=== PATIENT | female | born 1965 | race Two or more races ===

== ENCOUNTER 2022-08-28 08:29 | Emergency (ER) | payer OTHER ==
[~2022-08-28] VITALS: Ht 165.1 cm; Wt 84.8 kg
[2022-08-28] MEDS ORDERED: SYNTHROID75 MCG (08:37)
[2022-08-28] MEDS ORDERED: LIPITOR20 MG (08:37)
[2022-08-28] MEDS ORDERED: NEURONTIN800 MG (08:38)
[2022-08-28] MEDS ORDERED: PRILOSEC OTC20 MG (08:38)
[2022-08-28] MEDS ORDERED: ZESTRIL30 MG (08:38)
== END 2022-08-28 10:27 | disposition home or self-care (01) ==
LOC: ER 08:29
DX: M47.27 Other spondylosis with radiculopathy, lumbosacral region (principal); I10 Essential (primary) hypertension; E03.8 Other specified hypothyroidism

== ENCOUNTER 2023-02-25 12:10 | Emergency (ER) | payer OTHER ==
[~2023-02-25] VITALS: Ht 165.1 cm; Wt 90.7 kg
[~2023-02-25 12:10] MED LIST: LIPITOR20 MG; NEURONTIN800 MG; PRILOSEC OTC20 MG; SYNTHROID75 MCG; ZESTRIL30 MG
== END 2023-02-25 15:40 | disposition home or self-care (01) ==
LOC: ER 12:10
DX: S89.82XA Other specified injuries of left lower leg, initial encounter (principal); S89.91XA Unspecified injury of right lower leg, initial encounter; X58.XXXA Exposure to other specified factors, initial encounter; Y93.89 Activity, other specified; Y92.89 Other specified places as the place of occurrence of the external cause; Y99.8 Other external cause status; E03.8 Other specified hypothyroidism; I10 Essential (primary) hypertension

== ENCOUNTER 2023-03-22 16:48 | Emergency (ER) | payer OTHER ==
[~2023-03-22] VITALS: Ht 165.1 cm; Wt 90.7 kg
[2023-03-22] MEDS ORDERED: SINGULAIR10 MG PO (17:23)
[2023-03-22 18:45] LABS: HEMATOCRIT 34.4 % (36.0-45.00); HEMOGLOBIN 11.5 g/dL (12.0-15.00); MEAN CELL VOLUME 87.6 fL (80.00-100.00); MEAN CORPUSCULAR HEMOGLOBIN 29.4 pg (27.00-32.0); MEAN CORPUSCULAR HGB CONC 33.6 g/dl (32.0-36.0); PLATELET COUNT 221 K/uL (150-450); RED BLOOD COUNT 3.92 M/uL (4.00-6.00); RED CELL DISTRIBUTION WIDTH 14.1 % (11.5-14.5)
[2023-03-22] MEDS ORDERED: XOPENEX CO1.25 MG/0. IH (20:36)
[2023-03-22] MEDS ORDERED: MEDROLPACK PO (20:36)
[2023-03-22] MEDS ORDERED: IPRATROPIU0.2 MG/1 M IH (20:36)
== END 2023-03-22 20:47 | disposition home or self-care (01) ==
LOC: ER 16:48
PROVIDERS: Nurse Practitioner Family
DX: J45.909 Unspecified asthma, uncomplicated (principal); I10 Essential (primary) hypertension; G43.909 Migraine, unspecified, not intractable, without status migrainosus; E03.9 Hypothyroidism, unspecified; E78.49 Other hyperlipidemia; Z20.822 Contact with and (suspected) exposure to COVID-19
CPT/HCPCS: 36415; 71046; 94640; 96365; 99285; J2930

== ENCOUNTER 2023-06-30 22:50 | Emergency (ER) | payer OTHER ==
[~2023-06-30] VITALS: Ht 162.6 cm; Wt 63.0 kg
[~2023-06-30 22:50] MED LIST changes: +IPRATROPIU0.2 MG/1 M IH; +MEDROLPACK PO; +SINGULAIR10 MG PO; +XOPENEX CO1.25 MG/0. IH
[2023-07-01] MEDS ORDERED: KETOROLAC TROMETHAMINE 60 MG VIAL IM STA (01:56)
[2023-07-01] MEDS ORDERED: TRIAMCINOLONE ACETONIDE 40 MG/ML VIAL IM STA (01:56)
[2023-07-01] MEDS ORDERED: MELOXICAM15 MG PO (01:58)
== END 2023-07-01 02:07 ==
LOC: ER 22:51
DX: M25.571 Pain in right ankle and joints of right foot (principal); M25.572 Pain in left ankle and joints of left foot; I10 Essential (primary) hypertension; E05.90 Thyrotoxicosis, unspecified without thyrotoxic crisis or storm